=== PATIENT | female | born 1990 | race Caucasian/White ===

== ENCOUNTER → 2020-03-28 11:10 | Outpatient (CLI) | payer OTHER, SELFPAY ==
[2020-03-29 14:10] LABS: Strep Grp B PCR POS for Grp B Strep
== END ==
PROVIDERS: PCP Family Medicine; Visit Provider Family Medicine
DX: Z34.90 Encounter for supervision of normal pregnancy, unspecified, unspecified trimester (principal); Z3A.36 36 weeks gestation of pregnancy
CPT/HCPCS: 87653

== ENCOUNTER → 2020-04-12 10:21 | Outpatient (CLI) | payer OTHER, SELFPAY ==
[2020-04-13 08:02] LABS: Strep Grp B PCR POS for Grp B Strep
== END ==
PROVIDERS: PCP Family Medicine; Visit Provider Family Medicine
DX: Z34.90 Encounter for supervision of normal pregnancy, unspecified, unspecified trimester (principal); Z3A.39 39 weeks gestation of pregnancy
CPT/HCPCS: 87081; 87186; 87653

== ENCOUNTER 2020-04-26 21:50 | Inpatient (IN) | payer OTHER, SELFPAY ==
[2020-04-26] MEDS: miSOPROStoL 25 MCG TABLET VAG (22:45)
[2020-04-26 23:34] VITALS: BP 120/73
[2020-04-26 23:34] LABS: Add Manual Diff / Slide Review NO; Basophils Absolute Auto 100 /uL (0-100); Basophils Percent Auto 0.8 % (0-2); Eosinophils Absolute Auto 200 /uL (0-450); Hematocrit 38.5 % (36-46); Hemoglobin 12.9 g/dL (12.0-16.0); Lymphocytes Absolute Auto 1900 /uL (1100-4500); Mean Corpuscular HGB Conc 33.6 % (30-36); Mean Corpuscular Hemoglobin 29.1 PG (26-34); Mean Corpuscular Volume 86.4 fL (80-100); Monocytes Absolute Auto 600 /uL (0-900); Monocytes Percent Auto 5.9 % (3-14); Neutrophils Absolute Auto 6900 /uL (1500-7000); Neutrophils Percent Auto 71.3 % (50-75); Platelet Count 268 X10^3/uL (150-400); Red Blood Cell Count 4.45 X10^6/uL (4.0-5.2); White Blood Cell Count 9.7 X10^3/uL (4.5-11.0)
[2020-04-26 23:50] LABS: COVID19 -Nasal RAPID Negative (Negative)
--- NOTE | 2020-04-27 08:03 | P.HPOB_ITS ---
OB HPI Date/Time Date of admission: 04/26/20 Date Patient Seen: 04/27/20 Time Patient Seen: 08:03 History of Present Condition Chief complaint: : 1 Para: 0 Estimated Date of Delivery: 04/19/20 Estimated Gestational Age (weeks): 41w1d Narrative: Molly Tesfaye is a 29 year old at 41w1d who presented for post-dates IOL. She has been feeling her baby move regularly. She denies any LOF or vaginal bleeding. Mild intermittent cramping. There have been no complications with her . 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 Indications Indication for induction OB: post dates History of Present care: good care, initiated at week # (11) and pounds weight gain (58) Dating criteria: LMP confirmed by 1st trimester US Ultrasounds: normal 1st trimester US and normal mid trimester US Obstetrical complications: none Medical complications: none Preadmission Labs Blood type: B (+) positive -: Antibody screen: negative, Cystic fibrosis screen: positive ( tested negative), GBS status: positive (penicillin allergy), HBsAG: negative, HIV: negative and RPR/VDLR: negative -: Chlamydia screen: not detected and Gonorrhea screen: not detected -: Rubella: immune and Varicella: immune HCT: 38.5 HCAB: negative PAP: Normal Cell-free DNA: Negative other than CF 1 hr GTT: 76 Evaluation Evaluation Baseline heart rate: 130 Variability: Moderate (11-25) monitor accelerations: Present monitor decelerations: Absent Contraction Frequency (minutes): 2 Uterine Contraction Intensity: Mild Status: Category l Cervical dilation (cm): 1 Cervical effacement (%): 50 station: -3 Laboratory results: Laboratory Tests 04/26/20 04/26/20 04/26/20 23:00 23:00 23:00 WBC 9.7 RBC 4.45 Hgb 12.9 Hct 38.5 MCV 86.4 MCH 29.1 MCHC 33.6 RDW 13.0 Plt Count 268 Neut % (Auto) 71.3 Lymph % (Auto) 20.0 L [place] % (Auto) 5.9 Eos % (Auto) 2.0 Baso % (Auto) 0.8 Neut # (Auto) 6900 Lymph # (Auto) 1900 [place] # (Auto) 600 Eos # (Auto) 200 Baso # (Auto) 100 COVID-19 PCR Negative Blood Type B Positive Antibody Screen Negative PFSH Medical History Rosacea (~2004) Family History Mother No problems noted. Father Hypertension Grandmother Hip fracture Grandfather Congestive heart failure Grandmother Emphysema lung Smoker Grandfather No problems noted. 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.) current occupational exposures/hazards: No special melanie needs: No Smoking Status: Never smoker second hand exposure: No alcohol intake: former (Socially, 1-2 glasses wine a week.) substance use type: does not use during the past year weight has: remained stable Meds Home Medications and Allergies Home Medications Medication Instructions Recorded Confirmed Type prenat.vits,jose david,gxi-[id number] 1 tab PO DAILY 02/11/20 04/27/20 History Allergies Allergy/AdvReac Type Severity Reaction Status Date / Time amoxicillin Allergy rash and Verified 04/12/20 09:56 vomiting Penicillins Allergy rash and Verified 04/12/20 09:56 vomiting Exam Vital Signs (past 8 hours): Gen: NAD, standing comfortably in room, appears well CV: RRR, no murmurs Resp: clear to auscultation bilaterally Abd: soft, nondistended, nontender, gravid Ext: trace edema Estimated Weight (lbs): 8 Objective Labs Result Diagrams: 04/26/20 23:00 Labs: Laboratory Results - last 24 hr 04/26/20 04/26/20 04/26/20 23:00 23:00 23:00 WBC 9.7 RBC 4.45 Hgb 12.9 Hct 38.5 MCV 86.4 MCH 29.1 MCHC 33.6 RDW 13.0 Plt Count 268 Neut % (Auto) 71.3 Lymph % (Auto) 20.0 L [place] % (Auto) 5.9 Eos % (Auto) 2.0 Baso % (Auto) 0.8 Neut # (Auto) 6900 Lymph # (Auto) 1900 [place] # (Auto) 600 Eos # (Auto) 200 Baso # (Auto) 100 COVID-19 PCR Negative Blood Type B Positive Antibody Screen Negative Assessment and Plan Assessment and Plan Assessment and Plan narrative: 29yo at 41w1d presenting for post-dates IOL. without complications. Pt tested positive for heterozygous carrier of Delta F508 CF mutation, however father tested negative. Received one dose of cytotec overnight, then with non-painful regular cramping with regular cramping on monitoring and repeat dosing not completed. Shelley score currently 6. GBS positive, penicillin allergy, will treat with Cefazolin. Rh positive. - Expectant management, anticipate - Cefazolin 2g now, then 1g q8hrs - Start pitocin, titrate as tolerated. If without good cervical change, low threshold to use lobo catheter due to current Shelley score. - If with cervical change, plan for AROM after antibiotic infusion. - FHT reassuring - Epidural for pain control if desired.
[2020-04-27] MEDS: CALCIUM CARBONATE 500 MG TAB PO ×3 (08:04→16:53)
[2020-04-27] MEDS: CEFAZOLIN 2 GM/100 ML FROZ.PIGGY IV (08:05)
[2020-04-27] MEDS: LACTATED RINGERS 1,000 ML 125 ML IV ×2 (08:05→17:09)
[2020-04-27] MEDS: OXYTOCIN PREMIX 30 UNIT/500 ML PLAST..BAG IV (08:27)
--- NOTE | 2020-04-27 13:14 | PM.OBPNLAB ---
Date/Time Date Patient Seen: 04/27/20 Time Patient Seen: 13:14 Pain Control Pain control: tolerating well Pelvic Exam Dilation (cm): 2 Effacement (%): 90 station: -2 Amniotic membrane status: Ruptured Comments: After informed consent, AROM performed with production of scant clear fluid Contractions Contractions on admission: none Monitor mode: External Pitocin rate (mU/min): 18 Contraction frequency (min): 3 Contraction duration (min): 1 Contraction pattern: Regular Contraction intensity: Strong/Firm Status status: Category l Heart Rate Baseline: 130 Monitor Accelerations: Present Monitor Decelerations: Absent Monitor Variability: Moderate Assessment and Plan Comments: 29yo at 41w1d presenting for post-dates IOL. without complications. Pt tested positive for heterozygous carrier of Delta F508 CF mutation, however father tested negative. Received one dose of cytotec overnight, now on pitocin. AROM performed with production of scant clear fluid. GBS positive, penicillin allergy, will treat with Cefazolin. Rh positive. - Expectant management, anticipate - Cefazolin 1g q8hrs - Continue pitocin, titrate as tolerated. - FHT reassuring - Epidural for pain control if desired.
[2020-04-27] MEDS: ONDANSETRON 4 MG/2 ML INJ IV (14:44)
[2020-04-27] MEDS: CEFAZOLIN 1 GM/50 ML FROZ.PIGGY IV (16:02)
[2020-04-27] MEDS: OXYTOCIN 10 UNIT/ML VIAL 20 UNIT (18:17)
--- NOTE | 2020-04-27 18:43 | PM.OBPRVD ---
Labor & Delivery Delivery date: 04/27/20 Intrapartal events: None Estimated blood loss (mL): 450 Anesthesia Type: None Complications: None Narrative: PROCEDURE: at 41w0d presented for post-dates IOL and was admitted to Labor and Delivery. The patient progressed through the 1st stage over 4.5 hours. She received cytotec x 1, followed by pitocin. Pain was controlled with natural methods. Epidural was attempted, but unsuccessful and ultimately attempt aborted due to pt discomfort. The pt received IV Cefazolin for GBS prophylaxis due to penicillin allergy. AROM was performed 4 hours after initial antibiotic infusion with production of clear fluid. The patient progressed through the 2nd stage over 30 minutes and delivered a viable female infant with APGARs 9/9 at 18:09 via without complications. The perineum and vagina were inspected with 2nd degree laceration repaired with 2-O Chromic. Bilateral small labial lacerations were not repaired due to hemostasis. PREPROCEDURE DIAGNOSIS: Intrauterine at 41w0d GBS positive RH negative POSTPROCEDURE DIAGNOSIS: Intrauterine at 41w1d, delivered Same as preprocedure PROCEDURE: Spontaneous vaginal delivery INDUCTION: Cyotec LABOR AUGMENTATION: Pitocin, AROM ROM APPEARANCE: Clear BABY A DELIVERY TIME: 18:09 BABY A OUTCOME: Viable BABY A SEX: Female BABY A WEIGHT: 8lb7.2oz BABY A PRESENTATION: Vertex BABY A POSITION: OA BABY A NUCHAL CORD: None BABY A # CORD VESSELS: 3 BABY A CORD GASES OBTAINED: No PLACENTA DELIVERY TIME: 18:17 PLACENTAL DELIVERY TYPE: Spontaneous PLACENTA APPEARANCE: Intact Baby 1: gender: Female score (1 min): 9 score (5 min): 9 Plan for aftercare: Normal care
[2020-04-27] MEDS: LANOLIN OINT 7 GM 1 APPLIC TOP (19:49)
[2020-04-27] MEDS: DERMOPLAST SPRAY 20% 60 ML 1 SPRAY TOP (19:50)
[2020-04-27] MEDS: IBUPROFEN 600 MG TABLET PO (19:50)
--- NOTE | 2020-04-27 21:34 | PM.PROC.1 ---
Procedures Date/Time Date of procedure: 04/27/20 Time of procedure: 17:30 General Procedure description: Called to patient bedside for labor epidural at 1706. Patient was examined and consented. , no difficulties with the , no relevant past medical history. Allergy to PCN. Platlets and Hct reviewed and WNL. Patient was positioned with IV and monitors, O2 and rescue medications available. Prepped/draped and time out performed. Patient was frequently and violently yusuf, requesting that I stop attempting epidural placement during contractions. Three attempts made at L3-4 and L2-3. Loss of resistance was found at 7cm, however dural puncture attempted with no CSF, and catheter did not thread easily. The needle was withdrawn and attempted again. Patient's contractions were becoming increasingly frequent and the pitocin was discontinued. Shortly thereafter, the patient requested that we abort the procedure as she was feeling low pressure making it difficult for her to sit. 100 mcg of fentanyl was given IV in divided doses to assist with the acute pain. OB performed a cervical check and she was completely dilated and ready to start pushing. Further attempts were abandoned. Jessenia RODRIGUEZ Anesthesiologist Complications: none
[2020-04-28] MEDS: IBUPROFEN 600 MG TABLET PO ×2 (01:26→08:51)
[2020-04-28] MEDS: ACETAMINOPHEN 325 MG TABLET 650 MG PO (03:41)
[2020-04-28] MEDS: DOCUSATE 100 MG CAPSULE PO (08:51)
[2020-04-28] MEDS: PRENATAL VIT,CALC/IRON/FOLIC 1 TABLET 1 TAB PO (08:51)
--- NOTE | 2020-04-28 10:34 | P.DS_ITS ---
Discharge Providers Provider Date of admission: 04/26/20 21:50 Discharge Date: 04/28/20 Primary care physician: Janny Roy MD Consults: 04/28/20 18:43 Consult to Office Machine Installer Routine Comment: Discharge provider: Janny Roy MD Summary Hospital Course Date Patient Seen: 04/28/20 Time Patient Seen: 07:50 Procedures: Spontaneous vaginal delivery Hospital Course: The patient was admitted for induction of labor due to being post dates. She received Cytotec and then Pitocin for induction. AROM was performed with clear fluid present. GBS prophylaxis was completed with cefazolin due to penicillin allergy. The patient progressed to complete, and had a spontaneous vaginal delivery of a viable baby girl at 6:09 p.m. on 04/27/2020. A 2nd degree laceration was then repaired. There were no complications with the delivery. , there are also no complications. Time of discharge she was voiding, ambulating, and passing flatus without difficulty. Her lochia was decreasing appropriately. Her pain was well controlled. She was breast-feeding with good latch. She will follow up in clinic in 6 weeks for her check. Peripartum Data Delivery Method: Natural Vaginal Laceration Description: Perineal - 2nd Degree Episiotomy description: None Procedures: Spontaneous vaginal delivery complications: none [place] 1: Gender: Female Disposition of : home Discharge Diagnosis (1) Spontaneous vaginal delivery: Status: Acute Status at Discharge Cognitive/behavioral status at discharge: oriented Functional status at discharge: independent ambulation Overall status at discharge: patient is progressing back to baseline Time Spent with Patient Time attestation: Total time spent providing and/or coordinating discharge services: Objective Labs Result Diagrams: 04/26/20 23:00 Discharge Plan Discharge Plan Patient Disposition: Home Discharge orders & Medications Prescriptions: New acetaminophen 325 mg Tablet 650 mg PO Q6HR PRN (Reason: Pain, Mild (1-3)) Qty: 30 RF: 0 docusate sodium [DOK] 100 mg Capsule 100 mg PO DAILY Qty: 30 RF: 0 ibuprofen 600 mg Tablet 600 mg PO Q6HR PRN (Reason: Pain, Mild (1-3)) Qty: 30 RF: 0 Continued prenat.vits,jose david,kau-jgmv-vefur Tablet 1 tab PO DAILY RF: 0 Follow up/Referrals: Janny Roy MD [Primary Care Provider] - 6 Weeks Diet/Activity/Treatments Diet: Diet as Tolerated Skin/Wound/Dressing Care Report to your healthcare provider any signs of infection, such as:: chills, fever, increased pain and unusual drainage Visit Report/Discharge Packet Instructions: DI for Labor and Delivery, Vaginal Visit Report Forms: Patient Portal/API, Stroke Signs & Symptoms Discharge Data Primary Care Provider: Janny Roy
[2020-04-28 16:45] VITALS: BP 115/71; PULSE 79; RESP 18; TEMP 36.8
== END 2020-04-28 21:00 | disposition home or self-care (01) | DRG 807 ==
PROVIDERS: Admitting Provider Family Medicine; PCP Family Medicine; Referring Provider Family Medicine; Visit Provider Family Medicine
DX: O48.0 Post-term pregnancy (principal); Z37.0 Single live birth; Z3A.41 41 weeks gestation of pregnancy; Z01.812 Encounter for preprocedural laboratory examination; Z20.828 Contact with and (suspected) exposure to other viral communicable diseases; O99.824 Streptococcus B carrier state complicating childbirth; O70.1 Second degree perineal laceration during delivery
CPT/HCPCS: 36415; 59050; 59200; 59410; 85025; 86850; 86900; 86901; 87635; G0379; J0690; J2405; J2590

== ENCOUNTER → 2023-03-27 15:22 | Outpatient (CLI) | payer OTHER, SELFPAY ==
[2023-03-27 16:47] LABS: Add Manual Diff / Slide Review NO; Basophils Absolute Auto 0 /uL (0-100); Basophils Percent Auto 0.4 % (0-2); Eosinophils Absolute Auto 200 /uL (0-450); Eosinophils Percent Auto 2.8 % (2-4); Hematocrit 36.6 % (36-46); Hemoglobin 12.7 g/dL (12.0-16.0); Lymphocytes Absolute Auto 1600 /uL (1100-4500); Lymphocytes Percent Auto 21.1 % (25-40); Mean Corpuscular HGB Conc 34.7 % (30-36); Mean Corpuscular Hemoglobin 28.9 PG (26-34); Mean Corpuscular Volume 83.3 fL (80-100); Monocytes Absolute Auto 400 /uL (0-900); Monocytes Percent Auto 4.7 % (3-14); Neutrophils Absolute Auto 5300 /uL (1500-7000); Platelet Count 305 X10^3/uL (150-400); Red Blood Cell Count 4.39 X10^6/uL (4.0-5.2); Red Cell Distribution Width 12.8 % (11.6-14.8); White Blood Cell Count 7.5 X10^3/uL (4.5-11.0)
[2023-03-27 17:00] LABS: Alanine Aminotransferase 33 IU/L (<35); Albumin 4.2 g/dL (3.5-5.0); Albumin Globulin Ratio 1.4 (1.0-2.8); Alkaline Phosphatase 43 U/L (38-126); Aspartate Aminotransferase 33 IU/L (14-36); BUN Creatinine Ratio 16.3 (6-22); Bilirubin Total 0.3 mg/dL (0.2-1.3); Blood Urea Nitrogen 8 mg/dL (7-17); Calcium 9.5 mg/dL (8.4-10.2); Carbon Dioxide 23 mmol/L (22-32); Chloride 102 mmol/L (98-107); Estimated Glomerular Filt Rate > 60 mL/min (>60); Globulin 2.9 g/dL (1.7-4.1); Glucose 85 mg/dL (70-100); HEMOLYSIS < 15 (0-50); Potassium 4.2 mmol/L (3.4-5.1); Sodium 133 mmol/L (137-145); Total Protein 7.1 g/dL (6.3-8.2)
[2023-03-27 18:07] LABS: Creatinine Urine Random 37.5 mg/dL; Protein (Total) Urine Random 8 mg/dL (0-12); Protein Creatinine Ratio Urine 0.21 GRAM/24H
[2023-03-28 10:17] LABS: Varicella IgG Antibody 493 index (Immune >165)
[2023-03-28 18:16] LABS: Hepatitis B Surface Antigen NEGATIVE s/c (NEGATIVE); Rubella Antibody IgG 10.6 IU/mL (>15)
[2023-03-28 18:30] LABS: HIV 1 & 2 Ab/Ag 4th Gen Combo NEGATIVE (NEGATIVE); Hep C Virus Ab w/Reflex Quant NEGATIVE s/c (NEGATIVE)
[2023-03-29 04:16] LABS: RPR Screen Non Reactive (Non Reactive)
== END ==
PROVIDERS: PCP Family Medicine; Referring Provider Family Medicine; Visit Provider Family Medicine
DX: Z34.80 Encounter for supervision of other normal pregnancy, unspecified trimester (principal); I10 Essential (primary) hypertension
CPT/HCPCS: 80053; 80055; 82570; 84156; 86787; 86803; 86850; 86900; 86901; 87389

== ENCOUNTER → 2023-06-11 14:20 | Outpatient (CLI) | payer OTHER, SELFPAY ==
--- NOTE | 2023-06-11 | DI.US.S_ITS ---
PROCEDURE: US OB >= 14 WEEKS FETUS INDICATIONS: anatomy scan OUTSIDE/PRIOR DATING DATA: Last menstrual period (LMP): 01/12/2023. LMP-based estimated date of delivery (KATHERINE): 10/20/2023. First dating scan (date and location): 03/27/2023. Estimated date of delivery (KATHERINE) from first dating scan: 10/17/2023 The calculations are made using the clinical KATHERINE of 10/20/2023. TECHNIQUE: Real-time scanning was performed of the fetus, with image documentation and biometric measurements. Endovaginal scanning: Not performed COMPARISON: None. FINDINGS: General: A single living intrauterine gestation is present. Presentation: Transverse with head to maternal left. Placenta: Placental position is anterior , without previa. Amniotic fluid index: 21.8 cm, normal range is 5-24 cm. Single deepest vertical pocket is 6.6 cm. heart rate: 158 beats per minute. Maternal cervical canal: 5.0 cm long. Normal lower limit is 2.5 cm. biometrics: Biparietal diameter: 5.2 cm, 21 weeks 5 days Head circumference: 20.3 cm, 22 weeks 3 days Abdominal circumference: 18.4 cm, 23 weeks 2 days Femur length: 3.6 cm, 21 weeks 3 days Clinically estimated gestational age: 21 weeks 2 days Composite gestational age from present scan: 22 weeks 2 days Estimated weight and percentile: 502 g, 94th percentile Anatomic survey: Neuro: Ventricles are non-dilated at less than 10 mm. Cisterna magna is normal at 3-11 mm. Cerebellum is normal in size and morphology. Nuchal skin fold: Normal at less than 6 mm between 14-21 weeks gestational age. Face: Nose and lips, facial profile are normal. Spine: No evidence for spina bifida. Heart: 4-chambered heart is present, with normal ventricular outflow tracts. Diaphragm: Diaphragm is intact. Stomach: Left-sided stomach is present. Kidneys: No hydronephrosis. Normal is less than 5 mm in 2nd trimester, less than 7 mm in 3rd trimester. Cord: 3-vessel cord has orthotopic insertion. Bladder: Normal in size. Extremities: All 4 extremities identified. IMPRESSION: 1. Living 2nd trimester intrauterine with no sonographic evidence of complications. Current clinical age is 7 days greater than age based on LMP. 2. Normal 2nd trimester anatomy study. We strive to produce accurate, complete, and clear reports of imaging services. To assist us in improving patient care, this report was composed using standard report templates and voice recognition software. Therefore, it may contain abnormal punctuation, insertions and/or omissions. Occasional wrong-word or sound-alike substitutions may occur. Though we review the report and make efforts to correct it, we do recommend that the report be read carefully in proper context to recognize any text inaccuracies. Dictated by: Magdaleno Umanzor M.D. on 06/11/2023 at 19:11 Approved by: Magdaleno Umanzor M.D. on 06/11/2023 at 19:15
== END ==
LOC: US 14:20
PROVIDERS: PCP Family Medicine; Referring Provider Family Medicine; Visit Provider Family Medicine
DX: Z34.82 Encounter for supervision of other normal pregnancy, second trimester (principal); Z3A.22 22 weeks gestation of pregnancy
CPT/HCPCS: 76811

== ENCOUNTER → 2023-07-24 14:38 | Outpatient (CLI) | payer OTHER, SELFPAY ==
[2023-07-24 16:14] LABS: Add Manual Diff / Slide Review NO; Basophils Absolute Auto 0 /uL (0-100); Basophils Percent Auto 0.2 % (0-2); Eosinophils Absolute Auto 200 /uL (0-450); Eosinophils Percent Auto 2.1 % (2-4); Hematocrit 34.6 % (36-46); Hemoglobin 12.2 g/dL (12.0-16.0); Lymphocytes Absolute Auto 1400 /uL (1100-4500); Lymphocytes Percent Auto 16.3 % (25-40); Mean Corpuscular HGB Conc 35.3 % (30-36); Mean Corpuscular Hemoglobin 29.4 PG (26-34); Mean Corpuscular Volume 83.5 fL (80-100); Monocytes Absolute Auto 500 /uL (0-900); Monocytes Percent Auto 5.4 % (3-14); Neutrophils Absolute Auto 6700 /uL (1500-7000); Platelet Count 289 X10^3/uL (150-400); Red Blood Cell Count 4.14 X10^6/uL (4.0-5.2); Red Cell Distribution Width 12.8 % (11.6-14.8); White Blood Cell Count 8.8 X10^3/uL (4.5-11.0)
[2023-07-24 16:35] LABS: GTT (PREG) 1 Hour PP 50gm Dose 87 mg/dL (76-139)
== END ==
PROVIDERS: PCP Family Medicine; Referring Provider Family Medicine; Visit Provider Family Medicine
DX: Z34.80 Encounter for supervision of other normal pregnancy, unspecified trimester (principal)
CPT/HCPCS: 36415; 82950; 85025

== ENCOUNTER → 2023-09-27 15:12 | Outpatient (CLI) | payer OTHER, SELFPAY ==
[2023-09-28 14:42] LABS: Strep Grp B PCR NEG for Grp B Strep
== END ==
PROVIDERS: PCP Family Medicine; Visit Provider Family Medicine
DX: Z34.80 Encounter for supervision of other normal pregnancy, unspecified trimester (principal)
CPT/HCPCS: 87653

== ENCOUNTER 2023-10-28 19:34 | Inpatient (IN) | payer OTHER, SELFPAY ==
--- NOTE | 2023-10-28 20:12 | P.HPOB_ITS ---
OB HPI Date/Time Date of admission: 10/28/23 Date Patient Seen: 10/28/23 History of Present Condition Chief complaint: INDUCTION KATHERINE Calculator 2 Estimated Delivery Date Method Current WG Current Estimate 10/20/23 Manual 41w 2d Final KATHERINE - OCTAVIA Other Estimates 10/20/23 LMP (Certain) 41w 2d 10/17/23 Ultrasound #1 41w 5d Estimated Gestational Age (weeks): 41w1d : 2 Para: 1 Narrative: Pt is a 33yo at 41w1d here for postdates IOL. Pt denies any vaginal bleeding, LOF, contractions prior to admission. She is feeling her baby move regularly. Her has been uncomplicated, however at 40w3d here baby was noted to be breech after being vertex prior to that time. Pt declined version, however did complete spinning baby techniques at home. care: good care, initiated at week # (10) and pounds weight gain (27) Dating criteria OB: LMP confirmed by 1st trimester US Ultrasounds: normal 1st trimester US and normal mid trimester US Obstetrical complications: none Medical complications OB: none Indications Indication for induction OB: post dates Preadmission Labs Last OB Lab Results: 2 Blood Type B Positive 10/28/23 21:31 Antibody Screen Negative 10/28/23 21:31 Hematocrit 35.5 % (36-46) L 10/28/23 21:31 Hemoglobin 12.4 g/dL (12.0-16.0) 10/28/23 21:31 Hepatitis B Surface Antigen Negative s/c (NEGATIVE) 03/27/23 15 :58 Hepatitis C Antibody Negative s/c (NEGATIVE) 03/27/23 15:58 Rubella Antibody 10.6 IU/mL (>15) L 03/27/23 15:58 Varicella-Zoster IgG Antibody 493 index (Immune >165) 03/27/23 15:58 Glucose 1 Hour 87 mg/dL (76-139) 07/24/23 14:45 Group B Streptococcus (PCR) Neg for grp b strep 09/27/23 15:12 -: Urine: negative Genetic Screens: Cell-free DNA: Normal External Labs -: Urine: negative Prior (ies) Past Pregnancies Del. Date GA/Weeks Labor Lgth Wt Sex Route Outcome Anesthesia Place Delv Breastfeed Preg Comp Name 04/27/20 41+ 20 8 lb 6 oz Female vaginal live - full term no ne IH 22 months post-dates induction Marilyn Evaluation Evaluation Baseline heart rate: 120 Variability: Moderate (11-25) monitor accelerations: Present Monitor Decelerations: Absent Status: Category l PFSH Medical History Migraine with aura Spontaneous vaginal delivery Rosacea (~2004) Surgical History No pertinent past surgical history Family History Mother No problems noted. 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.) current occupational exposures/hazards: No special melanie needs: No travel history: over 6 months ago seatbelt use: always water heater temp set < 120 deg: Yes working smoke detector in home: Yes fire extinguisher in home: Yes carbon monox detector in home: Yes firearms in home: No do you feel safe at home: Yes Smoking Status: Never smoker second hand exposure: No alcohol intake: former (~1-2/week when not ) substance use type: does not use during the past year weight has: remained stable well-balanced diet: daily or most days daily servings fruits/ve or more times/day caffeine: Yes (1-2 cups coffee in AM) Type(s) of exercise: walking Meds Home Medications and Allergies Home Medications Medication Instructions Recorded Confirmed Type prenat.vits,jose david,cua-fmxe-hhjef 1 tab PO DAILY 02/11/20 10/29/23 History Allergies Allergy/AdvReac Type Severity Reaction Status Date / Time amoxicillin Allergy Mild rash and Verified 10/23/23 15:56 vomiting Penicillins Allergy Mild rash and Verified 10/23/23 15:56 vomiting OB Exam Resp Effort & Inspection: normal respiratory effort Auscultation: clear to auscultation bilaterally Cardio Rate: regular rate Rhythm: regular rhythm Heart Sounds: S1 normal, S2 normal and no murmurs GI Inspection: non-distended Palpation: Yes soft and No tender Presentation: vertex (via bedside ultrasound) Objective Labs 10/28/23 21:31 Assessment and Plan Assessment and Plan Assessment and Plan narrative: 33yo at 41w1d here for post-dates IOL. GBS negative, Rh positive. Pt was breech last week, however confirmed vertex via bedside u/s tonight. Shelley score 3 from clinic last week. - Cytotec PO 50mcg - FHT reassuring - GBS negative, no prophylaxis indicated - Epidural for pain control when desired - Confirm position again in the morning
[2023-10-28 21:42] LABS: Add Manual Diff / Slide Review NO; Basophils Absolute Auto 0 /uL (0-100); Basophils Percent Auto 0.5 % (0-2); Eosinophils Absolute Auto 100 /uL (0-450); Eosinophils Percent Auto 1.2 % (2-4); Hematocrit 35.5 % (36-46); Hemoglobin 12.4 g/dL (12.0-16.0); Lymphocytes Absolute Auto 1900 /uL (1100-4500); Lymphocytes Percent Auto 20.3 % (25-40); Mean Corpuscular HGB Conc 34.9 % (30-36); Mean Corpuscular Hemoglobin 29.6 PG (26-34); Monocytes Absolute Auto 500 /uL (0-900); Monocytes Percent Auto 5.7 % (3-14); Neutrophils Absolute Auto 6900 /uL (1500-7000); Neutrophils Percent Auto 72.3 % (50-75); Platelet Count 291 X10^3/uL (150-400); Red Blood Cell Count 4.17 X10^6/uL (4.0-5.2); White Blood Cell Count 9.5 X10^3/uL (4.5-11.0)
[2023-10-28] MEDS: miSOPROStoL 25 MCG TABLET 50 MCG PO (22:21)
[2023-10-28 22:57] VITALS: BP 122/72
[2023-10-29] MEDS: LACTATED RINGERS 1,000 ML 100 ML IV (00:40)
[2023-10-29] MEDS: miSOPROStoL 25 MCG TABLET 50 MCG PO (04:19)
--- NOTE | 2023-10-29 10:50 | P.PNOB_ITS ---
Date/Time Date Patient Seen: 10/29/23 Time Patient Seen: 08:00 Pain Control Pain control: tolerating well Pelvic Exam Dilation (cm): 3 Effacement (%): 80 station: -2 Amniotic membrane status: Intact Contractions Monitor mode: External Contraction frequency (min): 3 Contraction pattern: Irregular Contraction intensity: Mild Status status: Category l Heart Rate Baseline: 120 Monitor Accelerations: Present Monitor Decelerations: Absent Monitor Variability: Moderate Assessment and Plan Comments: *late entry* 33yo at 41w2d here for post-dates IOL. GBS negative, Rh positive. Conf irmed vertex again this morning. Received cytotec overnight, now yusuf frequently. Did have good cervical change overnight. - Expectant management, anticipate . Plan to recheck cervix in 2 hrs. If no change, will AROM - FHT reassuring - Epidural for pain control when desired
--- NOTE | 2023-10-29 10:53 | PM.OBPNLAB ---
Date/Time Date Patient Seen: 10/29/23 Time Patient Seen: 10:20 Pain Control Pain control: tolerating well Pelvic Exam Dilation (cm): 4 Effacement (%): 80 station: -2 Amniotic membrane status: Intact Comments: After informed consent, AROM performed with clear fluid present Contractions Monitor mode: External Contraction frequency (min): 3 Contraction pattern: Regular Contraction intensity: Mild Status status: Category l Heart Rate Baseline: 120 Monitor Accelerations: Present Monitor Decelerations: Absent Monitor Variability: Moderate Assessment and Plan Comments: 33yo at 41w2d here for post-dates IOL. AROM performed with clear fluid present. - Expectant management, anticipate . Will recheck cervix in 2hrs, if no cervical change initiate pitocin. - FHT reassuring
[2023-10-29] MEDS: LIDOCAINE 1% 20 ML INJ (13:30)
--- NOTE | 2023-10-29 14:37 | PM.OBPRVD ---
Labor & Delivery Delivery date: 10/29/23 Intrapartal Events: None Cervical ripening method: per misoprostal protocol Induction method: AROM Delivery monitor: external FHT and external uterine Route of delivery: Episiotomy description: None L&D Laceration Description: Perineal - 2nd Degree Quantitative Blood Loss: 590 Anesthesia Type: None Complications: hemorrhage Narrative: PROCEDURE: at 41w1d presented for post-dates IOL and was admitted to Labor and Delivery. The patient progressed through the 1st stage over 1.5 hours. ROM occured at 10:22 with clear fluid. Pain was controlled with natural methods. The patient progressed through the 2nd stage over 21 minutes and delivered a viable male with APGARs 7/9 at 13:23 via without complications. Nuchal cord x1 was reduced after delivery. The cord was cut and clamped after it stopped pulsating. The placenta delivered with gentle cord traction, and appeared complete. The perineum and vagina were inspected with 2nd degree laceration repaired with 2-O Vicryl. Needle and sponge counts were correct.? The vagina was inspected and no items were left in situ. Molly was doing well with her and her Keenan at bedside. PREPROCEDURE DIAGNOSIS: Intrauterine at 41w2d GBS negative RH positive POSTPROCEDURE DIAGNOSIS: Intrauterine at 41w2d, delivered Same as preprocedure [place] Baby 1: Infant gender: Male Presentation: vertex Position: Left Occiput Anterior Placenta delivery description: Spontaneous Cord Vessel Description: 3 Vessels and Nuchal Cord score (1 min): 7 score (5 min): 9 weight: 9 lb 5.738 oz Plan for aftercare: Routine care
[2023-10-29] MEDS: OXYTOCIN PREMIX 30 UNIT/500 ML PLAST..BAG 200 UNIT IV (15:35)
[2023-10-29] MEDS: ACETAMINOPHEN 325 MG TABLET 650 MG PO ×2 (15:57→22:32)
[2023-10-29] MEDS: LANOLIN OINT 7 GM 1 APPLIC TOP (15:58)
[2023-10-29] MEDS: IBUPROFEN 600 MG TABLET PO ×2 (15:58→22:33)
[2023-10-29] MEDS: DERMOPLAST SPRAY 20% 60 ML 1 SPRAY TOP (15:58)
[2023-10-30] MEDS: IBUPROFEN 600 MG TABLET PO ×2 (04:36→13:34)
[2023-10-30] MEDS: ACETAMINOPHEN 325 MG TABLET 650 MG PO ×2 (04:36→13:34)
[2023-10-30 07:54] VITALS: BP 115/72; PULSE 65; RESP 15; TEMP 36.6
--- NOTE | 2023-10-30 12:23 | P.DS_ITS ---
Discharge Providers Provider Date of admission: 10/28/23 19:34 Discharge Date: 10/30/23 Primary care physician: Janny Roy MD Consults: 10/30/23 14:35 Consult to [employer] Routine Comment: Discharge provider: Janny Roy MD Summary Hospital Course Date Patient Seen: 10/30/23 Diagnoses: Intrauterine at 41w2d GBS negative RH positive Hospital Course: The pt presented for postdates IOL. She received cytotec for induction. She then progressed into active labor. AROM was performed with clear fluid present. The pt progressed to complete and had an of a viable baby boy without complications. A 2nd degree perineal laceration was repaired. , there were no complications. At the time of discharge she was voiding, ambulating, and passing flatus without difficulty. Her lochia was decreasing appropriately. Her pain was well controlled. She was with good latch. She will f/u in 6 weeks for check. She would like the Paraguard for contraception. Peripartum Data Delivery Method: Natural Vaginal Laceration Description: Perineal - 2nd Degree Episiotomy description: None Procedures: Spontaneous vaginal delivery complications: none [place] 1: Gender: Male Disposition of : home Time Spent with Patient Time attestation: Total time spent providing and/or coordinating discharge services: Objective Labs 10/28/23 21:31 Exam Vital Signs (past 8 hours): - 10/30/23 07:54 Temperature 97.8 F Pulse Rate 65 Respiratory Rate 15 Blood Pressure 115/72 Narrative Exam Narrative: Gen: NAD, sitting comfortably in bed, appears well CV: RRR, no murmurs Resp: clear to auscultation bilaterally Abd: soft, appropriately tender, fundus firm and below the umbilicus, nondistended Ext: no edema Discharge Plan Discharge Plan Patient Disposition: Home Discharge orders & Medications Prescriptions: New acetaminophen 325 mg Tablet 650 mg PO Q6HR PRN (Reason: Pain, Mild (1-3)) Qty: 30 0RF docusate sodium 100 mg Capsule 100 mg PO DAILY Qty: 30 0RF ibuprofen 600 mg Tablet 600 mg PO Q6HR PRN (Reason: Pain, Mild (1-3)) Qty: 30 0RF Continued prenat.vits,jose david,hef-nfvd-tfprs Tablet 1 tab PO DAILY Follow up/Referrals: Janny Roy MD [Primary Care Provider] - (6 week Appt w/ Dr. Roy: December 09 @ 2:30pm) Diet/Activity/Treatments Diet: Diet as Tolerated and Regular Skin/Wound/Dressing Care Report to your healthcare provider any signs of infection, such as:: chills, fever, increased pain and unusual drainage Visit Report/Discharge Packet Instructions: DI for Labor and Delivery, Vaginal Stand Alone Forms: Discharge: Care, Patient Portal/API, Stroke Signs & Symptoms Discharge Data Primary Care Provider: Janny Roy Discharges patient from system. Discharge Date/Time: 10/30/23 14:05
== END 2023-10-30 14:05 | disposition home or self-care (01) | DRG 807 ==
PROVIDERS: Admitting Provider Family Medicine; PCP Family Medicine; Referring Provider Family Medicine; Visit Provider Family Medicine
DX: O48.0 Post-term pregnancy (principal); Z37.0 Single live birth; Z3A.41 41 weeks gestation of pregnancy; O70.1 Second degree perineal laceration during delivery; Z67.20 Type B blood, Rh positive
CPT/HCPCS: 36415; 59050; 59200; 76815; 85025; 86850; 86900; 86901; G0379; J2590